=== PATIENT | female | born 1950 | race Caucasian/White ===

== ENCOUNTER 2023-05-02 02:59 | Inpatient (IN) | payer MEDICARE, SELFPAY ==
[2023-05-02] VITALS (59 sets, daily range): BP systolic 114–170; BP diastolic 58–109; PULSE 71–136; RESP 15–48; TEMP 34–36.9; O2SAT 26–100; BMI 23.0
--- NOTE | 2023-05-02 03:04 | DI.RAD.S_ITS ---
PROCEDURE: XR CHEST 1V INDICATIONS: chest pain TECHNIQUE: One view of the chest was acquired. COMPARISON: None. FINDINGS: Surgical changes and devices: Cervical spinal fusion hardware is partially imaged. Lungs and pleura: Diffuse bilateral reticulations are seen throughout both lungs. No focal airspace consolidation. No pleural effusions or pneumothorax. Mediastinum: Mediastinal contours appear normal. Heart size is normal. Bones and chest wall: No suspicious bony lesions. Overlying soft tissues appear unremarkable. IMPRESSION: Diffuse bilateral reticular opacities, which may be related to chronic interstitial lung disease versus mild edema or an atypical or viral pneumonia. There is no significant discrepancy when compared to the overnight preliminary report. Approved by: Nghia Tesfaye M.D. on 05/02/2023 at 9:04
[2023-05-02 03:22] LABS: Add Manual Diff / Slide Review NO; Basophils Absolute Auto 100 /uL (0-100); Basophils Percent Auto 0.6 % (0-2); Eosinophils Absolute Auto 100 /uL (0-450); Eosinophils Percent Auto 0.6 % (2-4); Hematocrit 42.7 % (36-46); Hemoglobin 14.3 g/dL (12.0-16.0); Lymphocytes Absolute Auto 1600 /uL (1100-4500); Lymphocytes Percent Auto 15.8 % (25-40); Mean Corpuscular HGB Conc 33.5 % (30-36); Mean Corpuscular Hemoglobin 30.9 PG (26-34); Mean Corpuscular Volume 92.1 fL (80-100); Monocytes Absolute Auto 400 /uL (0-900); Monocytes Percent Auto 3.5 % (3-14); Neutrophils Absolute Auto 8000 /uL (1500-7000); Neutrophils Percent Auto 79.5 % (50-75); Platelet Count 231 X10^3/uL (150-400); Red Blood Cell Count 4.64 X10^6/uL (4.0-5.2); Red Cell Distribution Width 12.6 % (11.6-14.8); White Blood Cell Count 10.1 X10^3/uL (4.5-11.0)
[2023-05-02 03:29] LABS: Alanine Aminotransferase 18 IU/L (<35); Albumin 4.1 g/dL (3.5-5.0); Albumin Globulin Ratio 1.4 (1.0-2.8); Alkaline Phosphatase 49 U/L (38-126); Aspartate Aminotransferase 22 IU/L (14-36); BUN Creatinine Ratio 38.5 (6-22); Bilirubin Total 0.4 mg/dL (0.2-1.3); Blood Urea Nitrogen 20 mg/dL (7-17); Calcium 8.9 mg/dL (8.4-10.2); Carbon Dioxide 27 mmol/L (22-32); Chloride 104 mmol/L (98-107); Creatine Kinase 55 U/L (30-135); Estimated Glomerular Filt Rate > 60 mL/min (>60); Glucose 191 mg/dL (80-110); HEMOLYSIS 20 (0-50); Lipase 67 U/L (23-300); Potassium 3.9 mmol/L (3.4-5.1); Sodium 139 mmol/L (137-145); Total Protein 7.1 g/dL (6.3-8.2)
[2023-05-02] MEDS: ALBUTEROL 2.5 MG/3 ML NEB (ADULT) 10 MG INH (03:36)
[2023-05-02 03:37] LABS: NT-proBNP (BNP-Adult 18+) 111 pg/mL (<125)
[2023-05-02 03:41] LABS: Troponin I < 0.012 ng/mL (0.01-0.034)
[2023-05-02 04:10] LABS: Procalcitonin 0.04 ng/mL (<0.5)
--- NOTE | 2023-05-02 04:24 | ED.SOB ---
HPI - SOB/Dyspnea General Chief Complaint: Shortness of Breath/Dyspnea Stated Complaint: SOB Time Seen by Provider: 05/02/23 03:04 Source: patient and EMS Limitations: no limitations History of Present Illness HPI Narrative: Patient is a 72-year-old female with history of COPD, hypertension presenting today with increasing shortness of breath. She is visiting from [place] she is been appear for couple of months. She is not been using her albuterol nebulizer as often as she should but she has been using her inhalers fairly regularly. She reports over the last couple of days she is had increasing shortness of breath. EMS was called to her house earlier this evening for shortness of breath she was given a DuoNeb and then was not transported. They were called again for worsening shortness of breath. She was found to be hypoxic in the 80s brought to the ED for evaluation. In route she received Solu-Medrol 125 and a DuoNeb which has helped her. Patient reports that she is on home oxygen at night mostly in only has a as needed basis. However she has noted that she is had increasing need for oxygen during the day. She denies fevers chills or productive cough. Denies any abdominal pain nausea vomiting chest pain or palpitations. Related Data Home Medications Medication Instructions Recorded Confirmed albuterol sulfate 90 mcg/actuation ##0 10/30/16 aerosol inhaler (Ventolin HFA) albuterol sulfate 90 mcg/actuation 2 puff INH ##0 10/30/16 aerosol inhaler (Ventolin HFA) amlodipine 2.5 mg tablet (Norvasc) 2.5 mg PO QDAY ##0 10/30/16 aspirin 81 mg tablet,delayed 81 mg PO QDAY ##0 10/30/16 release cyclobenzaprine 10 mg tablet 10 mg PO HS ##0 10/30/16 ipratropium bromide 0.02 % 2.5 ml INH ##0 10/30/16 solution for inhalation levothyroxine 75 mcg tablet 0.075 mg PO QDAY ##0 10/30/16 (Synthroid) losartan 50 mg tablet 50 mg PO QDAY ##0 10/30/16 nortriptyline 25 mg capsule 25 mg PO HS ##0 10/30/16 (Pamelor) omeprazole 20 mg capsule,delayed 20 mg PO QDAY ##0 10/30/16 release simvastatin 20 mg tablet (Zocor) 20 mg PO HS ##0 10/30/16 Previous Rx's Medication Instructions Recorded ciprofloxacin HCl 500 mg tablet 500 mg PO BID 7 days #0 tabs 10/30/16 (Cipro) Allergies Allergy/AdvReac Type Severity Reaction Status Date / Time No Known Allergies Allergy Uncoded 12/11/17 12:05 Review of Systems Review of Systems ROS Unobtainable: All systems reviewed & are unremarkable except as noted in HPI and below Patient History Social History Smoking Status: Current every day smoker Smoking Status: Current every day smoker Substance Use Type: does not use Exam Initial Vital Signs Initial Vital Signs: Vital Signs Pulse Rate 80 05/02/23 03:03 Respiratory Rate 24 05/02/23 03:03 Pulse Oximetry 93 05/02/23 03:03 GENERAL: Alert 72-year-old female [id number] respiratory distress HEENT: Head atraumatic,EOMI, pupils reactive CARDIOVASCULAR: Regular rate and rhythm without murmurs, rubs or gallops. RESPIRATORY: Tachypneic decreased breath sounds bilaterally obvious conversational dyspnea ABDOMEN: Soft, nontender. Normoactive bowel sounds all 4 quadrants. No guarding or rebound. EXTREMITIES: Normal range of motion, no clubbing or edema. Neurovascularly intact NEUROLOGICAL: Alert and oriented x4.Normal gait and speech. SKIN: Warm, dry, no laceration, no petechiae, no rashes or lesions. Course Orders Ordered: ED Orders 05/02/23 03:02 Complete Blood Count AUTO DIFF Stat Comprehensive Metabolic Panel Stat Lipase Stat NT-proBNP (BNP-Adult 18+) Stat Troponin & CK Cardiac Panel Stat 05/02/23 03:04 XR chest 1V Stat EKG-12 Lead Stat 05/02/23 03:05 Respiratory Panel (Film Array) Stat 05/02/23 03:07 Procalcitonin Stat 05/02/23 05:01 ABG [Arterial Blood Gas] Stat 05/02/23 05:17 Arterial Blood Gas Stat 05/02/23 05:18 Venous Blood Gas Stat Remdesivir 200 mg/ Sodium (Chloride) 250 mls @ 250 mls/hr IV NOW ONE Stop: 05/02/23 07:18 Last Admin: 05/02/23 06:45 Dose: 250 mls/hr Discontinued Medications Albuterol (Albuterol 2.5 Mg/3 Ml Neb (Adult)) 10 mg INH NOW ONE Stop: 05/02/23 03:09 Last Admin: 05/02/23 03:36 Dose: 10 mg Documented By: MALINA Sodium Chloride (Normal Saline 0.9%) 1,000 mls @ 1,000 mls/hr IV BOLUS ONE Stop: 05/02/23 05:23 Last Infusion: 05/02/23 05:45 Dose: 0 mls/hr Documented By: Admin: 05/02/23 04:46 Dose: 1,000 mls/hr Documented By: FREEMAN Ceftriaxone Sodium 2,000 mg/ (Sodium Chloride) 100 mls @ 200 mls/hr IV NOW ONE Stop: 05/02/23 04:25 Last Infusion: 05/02/23 05:17 Dose: 0 mls/hr Documented By: Admin: 05/02/23 04:47 Dose: 200 mls/hr Documented By: FREEMAN Azithromycin 500 mg/ Dextrose 250 mls @ 250 mls/hr IV NOW ONE Stop: 05/02/23 04:25 Last Admin: 05/02/23 05:22 Dose: 250 mls/hr Documented By: FREEMAN Vital Signs Vital signs: Vital Signs - 8 hr 05/02/23 03:05 05/02/23 03:14 05/02/23 05:56 Temperature 97 F L Pulse Rate 80 72 84 Respiratory Rate 20 24 22 Blood Pressure 125/59 L Pulse Oximetry 93 96 94 Oxygen Delivery Method Nasal Cannula Nasal Cannula BiPAP Oxygen Flow Rate 1.5 1 Fraction of Inspired Oxygen 05/02/23 05:58 05/02/23 03:03 05/02/23 03:04 Temperature Pulse Rate 80 82 Respiratory Rate 24 16 Blood Pressure Pulse Oximetry 93 92 Oxygen Delivery Method Oxygen Flow Rate Fraction of Inspired Oxygen 05/02/23 03:04 05/02/23 03:30 05/02/23 03:30 Temperature 98 F Pulse Rate 71 Respiratory Rate 29 H Blood Pressure 125/59 L 138/59 L Pulse Oximetry 96 Oxygen Delivery Method Oxygen Flow Rate Fraction of Inspired Oxygen 05/02/23 04:00 05/02/23 04:00 05/02/23 04:30 Temperature Pulse Rate 75 Respiratory Rate 25 H Blood Pressure 138/60 139/73 Pulse Oximetry 94 Oxygen Delivery Method Oxygen Flow Rate Fraction of Inspired Oxygen 05/02/23 04:30 05/02/23 05:00 05/02/23 05:00 Temperature Pulse Rate 91 H 89 Respiratory Rate 24 21 Blood Pressure 123/59 L Pulse Oximetry 92 94 Oxygen Delivery Method Oxygen Flow Rate Fraction of Inspired Oxygen 05/02/23 05:30 05/02/23 05:30 05/02/23 06:00 Temperature Pulse Rate 88 Respiratory Rate 20 Blood Pressure 126/63 114/58 L Pulse Oximetry 100 Oxygen Delivery Method Oxygen Flow Rate Fraction of Inspired Oxygen 05/02/23 06:00 05/02/23 06:30 05/02/23 06:30 Temperature 98.5 F Pulse Rate 93 H 94 H Respiratory Rate 26 H 28 H Blood Pressure 126/65 Pulse Oximetry 93 90 L Oxygen Delivery Method Oxygen Flow Rate Fraction of Inspired Oxygen MDM - SOB/Dyspnea Lab Data 05/02/23 03:02 05/02/23 03:02 Labs: Lab Results 05/02/23 05/02/23 05/02/23 Range/Units 03:02 03:02 03:02 WBC 10.1 (4.5-11.0) X10^3/uL RBC 4.64 (4.0-5.2) X10^6/uL Hgb 14.3 (12.0-16.0) g/dL Hct 42.7 (36-46) % MCV 92.1 (80-100) fL MCH 30.9 (26-34) PG MCHC 33.5 (30-36) % RDW 12.6 (11.6-14.8) % Plt Count 231 (150-400) X10^3/uL Neut % (Auto) 79.5 H (50-75) % Lymph % (Auto) 15.8 L (25-40) % [place] % (Auto) 3.5 (3-14) % Eos % (Auto) 0.6 L (2-4) % Baso % (Auto) 0.6 (0-2) % Neut # (Auto) 8000 H (5200-9053) /uL Lymph # (Auto) 1600 (4377-2025) /uL [place] # (Auto) 400 (0-900) /uL Eos # (Auto) 100 (0-450) /uL Baso # (Auto) 100 (0-100) /uL ABG pH (7.35-7.45) ABG pCO2 (35-45) mmHg ABG pO2 (80-100) mmHg ABG HCO3 (23-27) mmol/L ABG Total CO2 (23-27) mmol/L ABG O2 Saturation (95-100) % ABG Base Excess (-2-3) mmol/L FiO2 Sodium 139 (137-145) mmol/L Potassium 3.9 (3.4-5.1) mmol/L Chloride 104 (98-107) mmol/L Carbon Dioxide 27 (22-32) mmol/L BUN 20 H (7-17) mg/dL Creatinine 0.52 (0.52-1.04) mg/dL Estimated GFR > 60 (>60) mL/min BUN/Creatinine Ratio 38.5 H (6-22) Glucose 191 H (80-110) mg/dL Calcium 8.9 (8.4-10.2) mg/dL Total Bilirubin 0.4 (0.2-1.3) mg/dL AST 22 (14-36) IU/L ALT 18 (<35) IU/L Alkaline Phosphatase 49 (38-126) U/L Total Creatine Kinase 55 (30-135) U/L Troponin I < 0.012 (0.01-0.034) ng/mL NT-Pro-B Natriuret Pep 111 (<125) pg/mL Total Protein 7.1 (6.3-8.2) g/dL Albumin 4.1 (3.5-5.0) g/dL Globulin 3.0 (1.7-4.1) g/dL Albumin/Globulin Ratio 1.4 (1.0-2.8) Lipase 67 (23-300) U/L Procalcitonin (<0.5) ng/mL Chlamy pneumoniae PCR (Not Detect) Adenovirus (PCR) (Not Detect) B. pertussis DNA (PCR) (Not Detecte) B.parapertussis DNA PCR (Not Detecte) Coronavirus OC43 (PCR) (Not Detect) Coronavirus HKU1 (PCR) (Not Detect) Coronavirus 229E (PCR) (Not Detect) SARS-CoV-2 (PCR) (Not Detecte) Coronavirus NL63 (PCR) (Not Detect) Human Metapneumovir PCR (Not Detect) Influenza Type A (PCR) (Not Detect) Influenza Type B (PCR) (Not Detect) M. pneumoniae (PCR) (Not Detect) Parainfluenza 1 (PCR) (Not Detect) Parainfluenza 2 (PCR) (Not Detect) Parainfluenza 3 (PCR) (Not Detect) Parainfluenza 4 (PCR) (Not Detect) RSV (PCR) (Not Detect) Entero/Rhino (PCR) (Not Detect) 05/02/23 05/02/23 05/02/23 Range/Units 03:05 03:07 05:17 WBC (4.5-11.0) X10^3/uL RBC (4.0-5.2) X10^6/uL Hgb (12.0-16.0) g/dL Hct (36-46) % MCV (80-100) fL MCH (26-34) PG MCHC (30-36) % RDW (11.6-14.8) % Plt Count (150-400) X10^3/uL Neut % (Auto) (50-75) % Lymph % (Auto) (25-40) % [place] % (Auto) (3-14) % Eos % (Auto) (2-4) % Baso % (Auto) (0-2) % Neut # (Auto) (8595-6690) /uL Lymph # (Auto) (7543-3426) /uL [place] # (Auto) (0-900) /uL Eos # (Auto) (0-450) /uL Baso # (Auto) (0-100) /uL ABG pH 7.25 L* (7.35-7.45) ABG pCO2 66.7 H* (35-45) mmHg ABG pO2 46 L* (80-100) mmHg ABG HCO3 29 H (23-27) mmol/L ABG Total CO2 31 H (23-27) mmol/L ABG O2 Saturation 73 L* (95-100) % ABG Base Excess 2.0 (-2-3) mmol/L FiO2 32 Sodium (137-145) mmol/L Potassium (3.4-5.1) mmol/L Chloride (98-107) mmol/L Carbon Dioxide (22-32) mmol/L BUN (7-17) mg/dL Creatinine (0.52-1.04) mg/dL Estimated GFR (>60) mL/min BUN/Creatinine Ratio (6-22) Glucose (80-110) mg/dL Calcium (8.4-10.2) mg/dL Total Bilirubin (0.2-1.3) mg/dL AST (14-36) IU/L ALT (<35) IU/L Alkaline Phosphatase (38-126) U/L Total Creatine Kinase (30-135) U/L Troponin I (0.01-0.034) ng/mL NT-Pro-B Natriuret Pep (<125) pg/mL Total Protein (6.3-8.2) g/dL Albumin (3.5-5.0) g/dL Globulin (1.7-4.1) g/dL Albumin/Globulin Ratio (1.0-2.8) Lipase (23-300) U/L Procalcitonin 0.04 (<0.5) ng/mL Chlamy pneumoniae PCR Not detected (Not Detect) Adenovirus (PCR) Not detected (Not Detect) B. pertussis DNA (PCR) Not detected (Not Detecte) B.parapertussis DNA PCR Not detected (Not Detecte) Coronavirus OC43 (PCR) Not detected (Not Detect) Coronavirus HKU1 (PCR) Not detected (Not Detect) Coronavirus 229E (PCR) Not detected (Not Detect) SARS-CoV-2 (PCR) Detected H (Not Detecte) Coronavirus NL63 (PCR) Not detected (Not Detect) Human Metapneumovir PCR Not detected (Not Detect) Influenza Type A (PCR) Not detected (Not Detect) Influenza Type B (PCR) Not detected (Not Detect) M. pneumoniae (PCR) Not detected (Not Detect) Parainfluenza 1 (PCR) Not detected (Not Detect) Parainfluenza 2 (PCR) Not detected (Not Detect) Parainfluenza 3 (PCR) Not detected (Not Detect) Parainfluenza 4 (PCR) Not detected (Not Detect) RSV (PCR) Not detected (Not Detect) Entero/Rhino (PCR) Not detected (Not Detect) Imaging Data Chest x-ray: Radiologist's Impression: Preliminary report: Coarse interstitial opacities bilaterally which could be associated with infiltrate or edema ECG Data Interpretation: Sinus rhythm rate 95 MT interval 154 QRS [address] changes no T-wave inversions MDM Narrative Medical decision making narrative: Patient 72-year-old female history of COPD on oxygen as needed presenting with increasing shortness of breath over the last couple of days. She initially was given 10 mg of albuterol which did open her up quite a bit and helped her respiratory distress. She reports feeling more sleepy than normal and just overall exhausted fell asleep. While sleeping she had a stridorous like sound which stops when she does not sleep. When patient is awake she is not stridorous is likely sleeping noise but she still is having some mild retractions and respiratory distress. Patient does not allow for an ABG so a VBG was done showing CO2 66 and a pH is 7.2. She is placed on BiPAP. She overall appears more comfortable help with her respiratory distress Chest x-ray has been reviewed shows interstitial opacities which could be infiltrate edema or fibrosis. Labs have been reviewed there is no significant leukocytosis or electrolyte abnormalities procalcitonin negative negative lactate. Negative BNP At this time patient has a history of COPD symptoms are most consistent with a COPD exacerbation. She was given Solu-Medrol prior to arrival she is given IV fluids Rocephin and Zithromax. She is on 1-2 L of oxygen currently.. Patient tolerating BiPAP but discussed with her she actually does not want to stay in the hospital agrees to keep the BiPAP on for longer. Dr. Mendez accepts patient Discharge Plan Departure Patient Disposition: Admitted As Inpatient Clinical Impression: COVID-19, COPD (chronic obstructive pulmonary disease), Hypoxia Prescriptions: No Action aspirin 81 MG tablet,delayed release (DR/EC) 81 mg PO QDAY Qty: 0 levothyroxine [Synthroid] 75 MCG tablet 0.075 mg PO QDAY Qty: 0 nortriptyline [Pamelor] 25 MG capsule 25 mg PO HS Qty: 0 albuterol sulfate [Ventolin HFA] 90 MCG/PUFF HFA aerosol inhaler Qty: 0 losartan 50 MG tablet 50 mg PO QDAY Qty: 0 simvastatin [Zocor] 20 MG tablet 20 mg PO HS Qty: 0 albuterol sulfate [Ventolin HFA] 90 MCG/PUFF HFA aerosol inhaler 2 puff INH Qty: 0 ipratropium bromide 0.2 MG/1 ML solution 2.5 ml INH Qty: 0 cyclobenzaprine 10 MG tablet 10 mg PO HS Qty: 0 amlodipine [Norvasc] 2.5 MG tablet 2.5 mg PO QDAY Qty: 0 omeprazole 20 MG capsule,delayed release(DR/EC) 20 mg PO QDAY Qty: 0 ciprofloxacin HCl [Cipro] 500 MG tablet 500 mg PO BID 7 Days Qty: 0 0RF Referrals: Alpa Black PA-C [Primary Care Provider] -
[2023-05-02] MEDS: SODIUM CHLORIDE 0.9% 1,000 ML 1000 ML IV (04:46)
[2023-05-02] MEDS: cefTRIAXone 2,000 MG in SODIUM CHLORIDE 0.9% 100 ML 200 MG IV (04:47)
[2023-05-02] MEDS: AZITHROMYCIN 500 MG in DEXTROSE 5% IN WATER 250 ML 250 MG IV (05:22)
[2023-05-02 05:48] LABS: Fractionated Inspired Oxygen 32; HCO3 ABG 29 mmol/L (23-27); Oxygen Saturation ABG 73 % (95-100); PCO2 ABG 66.7 mmHg (35-45); PO2 ABG 46 mmHg (80-100); TCO2 ABG 31 mmol/L (23-27); pH ABG 7.25 (7.35-7.45)
[2023-05-02 06:19] LABS: Adenovirus Not Detected (Not Detect); Coronavirus 229E Not Detected (Not Detect); Coronavirus HKU1 Not Detected (Not Detect); Coronavirus NL 63 Not Detected (Not Detect); Coronavirus OC43 Not Detected (Not Detect); Human Metapneumovirus Not Detected (Not Detect); Human Rhinovirus/Enterovirus Not Detected (Not Detect); Influenza A Not Detected (Not Detect); Influenza B Not Detected (Not Detect); SARS- CoV-2 Detected (Not Detecte)
[2023-05-02 06:20] LABS: B. parapertussis Not Detected (Not Detecte); Bordetella pertussis Not Detected (Not Detecte); Chlamydophila pneumoniae Not Detected (Not Detect); Mycoplasma pneumoniae Not Detected (Not Detect); Parainfluenza Virus 1 Not Detected (Not Detect); Parainfluenza Virus 2 Not Detected (Not Detect); Parainfluenza Virus 3 Not Detected (Not Detect); Parainfluenza Virus 4 Not Detected (Not Detect); Respiratory Syncytial Virus Not Detected (Not Detect)
[2023-05-02] MEDS: REMDESIVIR 200 MG in SODIUM CHLORIDE 0.9% 250 ML 250 MG IV (06:45)
[2023-05-02] MEDS: ENOXAPARIN 40 MG/0.4 ML SYRINGE SUBCUT (09:44)
[2023-05-02] MEDS: DEXAMETHASONE 10 MG/ML VIAL 6 MG IV (09:44)
--- NOTE | 2023-05-02 15:01 | P.HP_ITS ---
History of Present Illness History of Present Illness Date Patient Seen: 05/02/23 Time Patient Seen: 08:00 Chief complaint: SOB Narrative: Ms. Velasquez is a 72W with PMH COPD, HTN who presents to the hospital with shortness of breath. She notes she has had worsening shortness of breath for the last few days. She is coughing but minimal sputum. She is traveling from out of [facility]. She has no known sick contacts. EMS found her to be hypoxic to the 80s, she uses oxygen on an as needed basis. She has no fevers/chills. In the ED workup was done, vitals notable for afebrile, heart rate 90s-100s, blood pressure 130s-140s/70s-90s, respiratory rate 20s, sats 96% on 3L. She was placed on BIPAP due to her work of breathing. Labs reviewed by me and notable for WBC 10.1, hgb 14.3, plts 231. Na 139, BUN 20, creatinine 0.52. Trop negative. Procal 0.04. Respiratory panel with COVID. Chest xray reviewed by me and shows bilateral interstitial infiltrates. She was admitted for further treatment. [facility] Social History household members: family Smoking Status: Current every day smoker alcohol intake: never Meds Home Medications and Allergies Home Medications Medication Instructions Recorded Confirmed Type albuterol sulfate 90 mcg/actuation 2 puff INH Q6HR ##0 10/30/16 05/02/23 History aerosol inhaler (Ventolin HFA) amlodipine 2.5 mg tablet (Norvasc) 2.5 mg PO QDAY ##0 10/30/16 05/02/23 History ciprofloxacin HCl 500 mg tablet 500 mg PO BID 7 days #0 tabs 10/30/16 05/02/23 Rx (Cipro) cyclobenzaprine 10 mg tablet 10 mg PO HS ##0 10/30/16 05/02/23 History ipratropium bromide 0.02 % 2.5 ml INH ##0 10/30/16 History solution for inhalation levothyroxine 75 mcg tablet 0.075 mg PO QDAY ##0 10/30/16 05/02/23 History (Synthroid) losartan 50 mg tablet 50 mg PO QDAY ##0 10/30/16 05/02/23 History nortriptyline 25 mg capsule 25 mg PO HS ##0 10/30/16 05/02/23 History (Pamelor) omeprazole 20 mg capsule,delayed 20 mg PO QDAY ##0 10/30/16 05/02/23 History release simvastatin 20 mg tablet (Zocor) 20 mg PO HS ##0 10/30/16 05/02/23 History guaifenesin 1,200 mg tablet, 1,200 mg PO DAILY 05/02/23 05/02/23 History extended release 12 hr Allergies Allergy/AdvReac Type Severity Reaction Status Date / Time No Known Allergies Allergy Uncoded 12/11/17 12:05 Review of Systems Review of Systems Narrative: 14 systems reviewed and negative aside from what is noted in HPI Exam Vital Signs (past 8 hours): - 05/02/23 07:50 05/02/23 09:47 05/02/23 07:50 Temperature Pulse Rate 101 H Respiratory Rate 20 Blood Pressure 170/98 H Pulse Oximetry 96 Oxygen Delivery Method Nasal Cannula Nasal Cannula Oxygen Flow Rate 3 Fraction of Inspired Oxygen 26 05/02/23 07:30 05/02/23 07:31 05/02/23 07:31 Temperature Pulse Rate 101 H 101 H Respiratory Rate 46 H 38 H Blood Pressure 170/96 H Pulse Oximetry 85 L 87 L Oxygen Delivery Method Oxygen Flow Rate Fraction of Inspired Oxygen 05/02/23 08:00 05/02/23 08:01 05/02/23 08:01 Temperature Pulse Rate 101 H 103 H Respiratory Rate 48 H 27 H Blood Pressure 145/109 H Pulse Oximetry 91 91 Oxygen Delivery Method Oxygen Flow Rate Fraction of Inspired Oxygen 05/02/23 08:30 05/02/23 08:30 05/02/23 09:00 Temperature Pulse Rate 101 H Respiratory Rate 25 H Blood Pressure 145/65 H 136/63 Pulse Oximetry 91 Oxygen Delivery Method Oxygen Flow Rate Fraction of Inspired Oxygen 05/02/23 09:00 05/02/23 09:30 05/02/23 09:31 Temperature Pulse Rate 98 H 101 H Respiratory Rate 23 26 H Blood Pressure 135/94 H Pulse Oximetry 91 94 Oxygen Delivery Method Oxygen Flow Rate Fraction of Inspired Oxygen 05/02/23 09:31 05/02/23 10:01 05/02/23 10:30 Temperature 97.8 F Pulse Rate 103 H 136 H 95 H Respiratory Rate 26 H 22 Blood Pressure Pulse Oximetry 94 92 98 Oxygen Delivery Method Oxygen Flow Rate Fraction of Inspired Oxygen 05/02/23 11:00 05/02/23 11:30 05/02/23 11:42 Temperature Pulse Rate 99 H 102 H Respiratory Rate Blood Pressure 144/69 H Pulse Oximetry 95 96 Oxygen Delivery Method Oxygen Flow Rate Fraction of Inspired Oxygen 05/02/23 11:42 05/02/23 13:09 05/02/23 12:00 Temperature Pulse Rate 103 H Respiratory Rate Blood Pressure 147/70 H Pulse Oximetry 95 Oxygen Delivery Method Nasal Cannula Oxygen Flow Rate Fraction of Inspired Oxygen 05/02/23 12:00 05/02/23 12:30 05/02/23 13:00 Temperature Pulse Rate 97 H 98 H 93 H Respiratory Rate Blood Pressure Pulse Oximetry 96 97 97 Oxygen Delivery Method Oxygen Flow Rate Fraction of Inspired Oxygen 05/02/23 14:00 Temperature 97.8 F Pulse Rate 102 H Respiratory Rate 23 Blood Pressure 133/66 Pulse Oximetry 96 Oxygen Delivery Method Oxygen Flow Rate 2 Fraction of Inspired Oxygen Fraction of Inspired Oxygen 26 SaO2/FiO2 Ratio 361 Oxygen Delivery Method Nasal Cannula Oxygen Flow Rate 2 Narrative Exam Narrative: GEN: in respiratory distress CV: tachycardic PULM: increased work of breathing, corase breath sounds bilaterally ABD: soft, nontender, nondistended EXT: warm and well perfused with no edema Objective Labs 05/02/23 03:02 05/02/23 03:02 Labs: Laboratory Results - last 24 hr 05/02/23 05/02/23 05/02/23 03:02 03:02 03:02 WBC 10.1 RBC 4.64 Hgb 14.3 Hct 42.7 MCV 92.1 MCH 30.9 MCHC 33.5 RDW 12.6 Plt Count 231 Neut % (Auto) 79.5 H Lymph % (Auto) 15.8 L [place] % (Auto) 3.5 Eos % (Auto) 0.6 L Baso % (Auto) 0.6 Neut # (Auto) 8000 H Lymph # (Auto) 1600 [place] # (Auto) 400 Eos # (Auto) 100 Baso # (Auto) 100 ABG pH ABG pCO2 ABG pO2 ABG HCO3 ABG Total CO2 ABG O2 Saturation ABG Base Excess FiO2 Sodium 139 Potassium 3.9 Chloride 104 Carbon Dioxide 27 BUN 20 H Creatinine 0.52 Estimated GFR > 60 BUN/Creatinine Ratio 38.5 H Glucose 191 H Calcium 8.9 Total Bilirubin 0.4 AST 22 ALT 18 Alkaline Phosphatase 49 Total Creatine Kinase 55 Troponin I < 0.012 NT-Pro-B Natriuret Pep 111 Total Protein 7.1 Albumin 4.1 Globulin 3.0 Albumin/Globulin Ratio 1.4 Lipase 67 Procalcitonin Chlamy pneumoniae PCR Adenovirus (PCR) B. pertussis DNA (PCR) B.parapertussis DNA PCR Coronavirus OC43 (PCR) Coronavirus HKU1 (PCR) Coronavirus 229E (PCR) SARS-CoV-2 (PCR) Coronavirus NL63 (PCR) Human Metapneumovir PCR Influenza Type A (PCR) Influenza Type B (PCR) M. pneumoniae (PCR) Parainfluenza 1 (PCR) Parainfluenza 2 (PCR) Parainfluenza 3 (PCR) Parainfluenza 4 (PCR) RSV (PCR) Entero/Rhino (PCR) 05/02/23 05/02/23 05/02/23 03:05 03:07 05:17 WBC RBC Hgb Hct MCV MCH MCHC RDW Plt Count Neut % (Auto) Lymph % (Auto) [place] % (Auto) Eos % (Auto) Baso % (Auto) Neut # (Auto) Lymph # (Auto) [place] # (Auto) Eos # (Auto) Baso # (Auto) ABG pH 7.25 L* ABG pCO2 66.7 H* ABG pO2 46 L* ABG HCO3 29 H ABG Total CO2 31 H ABG O2 Saturation 73 L* ABG Base Excess 2.0 FiO2 32 Sodium Potassium Chloride Carbon Dioxide BUN Creatinine Estimated GFR BUN/Creatinine Ratio Glucose Calcium Total Bilirubin AST ALT Alkaline Phosphatase Total Creatine Kinase Troponin I NT-Pro-B Natriuret Pep Total Protein Albumin Globulin Albumin/Globulin Ratio Lipase Procalcitonin 0.04 Chlamy pneumoniae PCR Not detected Adenovirus (PCR) Not detected B. pertussis DNA (PCR) Not detected B.parapertussis DNA PCR Not detected Coronavirus OC43 (PCR) Not detected Coronavirus HKU1 (PCR) Not detected Coronavirus 229E (PCR) Not detected SARS-CoV-2 (PCR) Detected H Coronavirus NL63 (PCR) Not detected Human Metapneumovir PCR Not detected Influenza Type A (PCR) Not detected Influenza Type B (PCR) Not detected M. pneumoniae (PCR) Not detected Parainfluenza 1 (PCR) Not detected Parainfluenza 2 (PCR) Not detected Parainfluenza 3 (PCR) Not detected Parainfluenza 4 (PCR) Not detected RSV (PCR) Not detected Entero/Rhino (PCR) Not detected Assessment & Plan Assessment & Plan narrative: 1. Acute hypoxemic respiratory failure secondary to COVID with acute COPD exacerbation -noted to be hypoxemic on initial evaluation, now requiring oxygen -will treat with steroids and remdesivir for COVID -in addition will treat with azithromycin and nebulizers for copd exacerbation -wean oxygen as able, goal o2>88% 2. Hypertension -continue home meds with losartan, amlodipine 3. Hyperlipidemia -continue statin 4. Hypothyroid -continue synthroid 5. GERD -continue PPI I have discussed plan and obtained history from the patient. I have discussed plan of care with ED physician and bedside nurse. I have reviewed labs, imaging. CODE: Full Proxy: Cam Layton, family Quality VTE Deep Vein Thrombosis/Pulmonary Embolism Present on Admission: No MIPS - Meds 'Current medications' to include all prescriptions, [id number] products, herbals, cannabis/cannabidiol products, and vitamin/mineral/dietary (nutritional) supplements. I have utilized all available resources to obtain, update, or review the patient?s current medications. [If Yes, STOP here]: Yes
[2023-05-02] MEDS: ALBUTEROL/IPRATROPIUM 3 ML AMPUL INH ×2 (15:17→19:43)
[2023-05-02 15:36] LABS: MRSA (Nasal) PCR Not Detected (Not Detect)
[2023-05-02] MEDS: guaiFENesin ER 600 MG TAB PO (15:38)
[2023-05-02] MEDS: ATORVASTATIN 20 MG TABLET 10 MG PO (20:08)
[2023-05-03] VITALS (18 sets, daily range): BP systolic 135–140; BP diastolic 65–87; PULSE 69–96; RESP 18–24; TEMP 35.8–36.4; O2SAT 90–100
[2023-05-03 04:59] LABS: Add Manual Diff / Slide Review NO; Basophils Absolute Auto 0 /uL (0-100); Basophils Percent Auto 0.1 % (0-2); Eosinophils Absolute Auto 0 /uL (0-450); Eosinophils Percent Auto 0.1 % (2-4); Hematocrit 38.2 % (36-46); Hemoglobin 12.9 g/dL (12.0-16.0); Lymphocytes Absolute Auto 1300 /uL (1100-4500); Mean Corpuscular HGB Conc 33.7 % (30-36); Mean Corpuscular Hemoglobin 30.9 PG (26-34); Mean Corpuscular Volume 91.8 fL (80-100); Monocytes Absolute Auto 700 /uL (0-900); Monocytes Percent Auto 5.8 % (3-14); Neutrophils Absolute Auto 9800 /uL (1500-7000); Platelet Count 199 X10^3/uL (150-400); Red Blood Cell Count 4.16 X10^6/uL (4.0-5.2); Red Cell Distribution Width 12.6 % (11.6-14.8); White Blood Cell Count 11.7 X10^3/uL (4.5-11.0)
[2023-05-03 05:11] LABS: BUN Creatinine Ratio 35.7 (6-22); Blood Urea Nitrogen 15 mg/dL (7-17); Calcium 8.7 mg/dL (8.4-10.2); Carbon Dioxide 32 mmol/L (22-32); Chloride 104 mmol/L (98-107); Estimated Glomerular Filt Rate > 60 mL/min (>60); Glucose 115 mg/dL (80-110); HEMOLYSIS < 15 (0-50); Sodium 138 mmol/L (137-145)
[2023-05-03] MEDS: PANTOPRAZOLE DR 20 MG TABLET PO (05:42)
[2023-05-03] MEDS: AZITHROMYCIN 500 MG in DEXTROSE 5% IN WATER 250 ML 125 MG IV (05:42)
[2023-05-03] MEDS: LEVOTHYROXINE 75 MCG TABLET PO (05:42)
[2023-05-03] MEDS: DEXAMETHASONE 10 MG/ML VIAL 6 MG IV (08:30)
[2023-05-03] MEDS: AMLODIPINE 5 MG TABLET 2.5 MG PO (08:31)
[2023-05-03] MEDS: LOSARTAN 50 MG TABLET PO (08:31)
[2023-05-03] MEDS: ENOXAPARIN 40 MG/0.4 ML SYRINGE SUBCUT (08:31)
[2023-05-03] MEDS: REMDESIVIR 100 MG in SODIUM CHLORIDE 0.9% 250 ML 250 MG IV (09:50)
[2023-05-03] MEDS: guaiFENesin ER 600 MG TAB PO (11:57)
--- NOTE | 2023-05-03 12:38 | PM.DS.1 ---
History of Present Illness History of Present Illness Date Patient Seen: 05/03/23 Time Patient Seen: 12:39 Chief complaint: SOB Narrative: Ms. Velasquez is a 72W with PMH COPD, HTN who presents to the hospital with shortness of breath. She notes she has had worsening shortness of breath for the last few days. She is coughing but minimal sputum. She is traveling from out of [facility]. She has no known sick contacts. EMS found her to be hypoxic to the 80s, she uses oxygen on an as needed basis. She has no fevers/chills. In the ED workup was done, vitals notable for afebrile, heart rate 90s-100s, blood pressure 130s-140s/70s-90s, respiratory rate 20s, sats 96% on 3L. She was placed on BIPAP due to her work of breathing. Labs reviewed by me and notable for WBC 10.1, hgb 14.3, plts 231. Na 139, BUN 20, creatinine 0.52. Trop negative. Procal 0.04. Respiratory panel with COVID. Chest xray reviewed by me and shows bilateral interstitial infiltrates. She was admitted for further treatment. Discharge Providers Provider Date of admission: 05/02/23 07:12 Discharge Date: 05/03/23 Primary care physician: Alpa Black PA-C Discharge provider: Simon Israel DO Summary Hospital Course Discharge Diagnosis: 1. Acute on chronic hypoxemic respiratory failure secondary to COVID with acute COPD exacerbation 2. Hypertension 3. Hyperlipidemia 4. Hypothyroid 5. GERD Hospital Course: This is a 72 year old female with PMH of HTN, HLD, hypothyroid, GERD, COPD on intermittent home O2 who presented with worsening shortness of breath. She was found to be hypoxic and needing a few L via nasal cannula to maintain O2 above 89%. Respiratory panel noted a positive COVID test. She was treated with remdesevir and steroids along with azithromycin with improvement. The following day she felt improved, but was still requiring intermittent oxygen to maintain o2 saturations. We discussed the risks and benefits of continued COVID treatment or treatment at home. Patient elected for discharge home. She improved much more quickly than expected. Respiratory therapy helped to obtain continued oxygen therapy at home, patient was instructed to wean as tolerated with goal O2 89-96% while on supplemental therapy. She was also given another 4 days of prednisone and azithromycin to complete treatment for COPD exacerbation. Time Spent with Patient Time spent: Greater than 30 minutes Exam Vital Signs (past 8 hours): - 05/03/23 05:00 05/03/23 05:30 05/03/23 06:00 Temperature Pulse Rate 75 72 80 Respiratory Rate Blood Pressure Pulse Oximetry 95 93 90 L Oxygen Delivery Method Oxygen Flow Rate 05/03/23 07:00 05/03/23 06:30 05/03/23 07:00 Temperature Pulse Rate 78 78 Respiratory Rate Blood Pressure Pulse Oximetry 99 99 Oxygen Delivery Method Nasal Cannula Oxygen Flow Rate 05/03/23 07:30 05/03/23 07:30 Temperature 97.5 F L Pulse Rate 76 79 Respiratory Rate 23 Blood Pressure 140/87 Pulse Oximetry 98 95 Oxygen Delivery Method Oxygen Flow Rate 2 Fraction of Inspired Oxygen 28 SaO2/FiO2 Ratio 339 Oxygen Delivery Method Nasal Cannula Oxygen Flow Rate 2 Narrative Exam Narrative: GEN: no acute distress, well appearing CV: RRR PULM: CTA b/l ABD: soft, nontender, nondistended EXT: warm and well perfused with no edema Objective Labs 05/03/23 04:20 05/03/23 04:20 Labs: Laboratory Results - last 24 hr 05/02/23 05/03/23 05/03/23 14:05 04:20 04:20 WBC 11.7 H RBC 4.16 Hgb 12.9 Hct 38.2 MCV 91.8 MCH 30.9 MCHC 33.7 RDW 12.6 Plt Count 199 Neut % (Auto) 83.0 H Lymph % (Auto) 11.0 L [place] % (Auto) 5.8 Eos % (Auto) 0.1 L Baso % (Auto) 0.1 Neut # (Auto) 9800 H Lymph # (Auto) 1300 [place] # (Auto) 700 Eos # (Auto) 0 Baso # (Auto) 0 Sodium 138 Potassium 4.0 Chloride 104 Carbon Dioxide 32 BUN 15 Creatinine 0.42 L Estimated GFR > 60 BUN/Creatinine Ratio 35.7 H Glucose 115 H Calcium 8.7 Nasal Screen MRSA (PCR) Not detected [facility] Social History household members: family Smoking Status: Current every day smoker alcohol intake: never Discharge Plan Discharge Plan Patient Disposition: Home Provider Discharge Comment: You were admitted to the hospital with COPD exacerbation likely due to COVID. You elected for discharge home today, continue treatment with steroids and medications noted below at home. Home O2 evaluation with increase equipment in process with respiratory therapy. Discharge orders & Medications Prescriptions: New azithromycin 250 mg tablet 250 mg PO DAILY 4 Days Qty: 4 0RF prednisone 20 mg tablet 40 mg PO DAILY 4 Days Qty: 8 0RF Continued levothyroxine [Synthroid] 75 MCG tablet 0.075 mg PO QDAY Qty: 0 nortriptyline [Pamelor] 25 MG capsule 25 mg PO HS Qty: 0 losartan 50 MG tablet 50 mg PO QDAY Qty: 0 simvastatin [Zocor] 20 MG tablet 20 mg PO HS Qty: 0 albuterol sulfate [Ventolin HFA] 90 MCG/PUFF HFA aerosol inhaler 2 puff INH Q6HR Qty: 0 ipratropium bromide 0.2 MG/1 ML solution 2.5 ml INH Qty: 0 Patient Comments: Patient unsure of exact dosage and frequency cyclobenzaprine 10 MG tablet 10 mg PO HS Qty: 0 amlodipine [Norvasc] 2.5 MG tablet 2.5 mg PO QDAY Qty: 0 omeprazole 20 MG capsule,delayed release(DR/EC) 20 mg PO QDAY Qty: 0 guaifenesin 1,200 mg Tablet Extended Release 12hr 1,200 mg PO DAILY Discontinued ciprofloxacin HCl [Cipro] 500 MG tablet 500 mg PO BID 7 Days Qty: 0 0RF Follow up/Referrals: Alpa Black PA-C [Primary Care Provider] - Visit Report/Discharge Packet Stand Alone Forms: Patient Portal/API, Stroke Signs & Symptoms Discharge Data Primary Care Provider: Alpa Black Discharges patient from system. Discharge Date/Time: 05/03/23 16:39 Quality VTE Deep Vein Thrombosis/Pulmonary Embolism Present on Admission: No
[2023-05-03] MEDS: ALBUTEROL/IPRATROPIUM 3 ML AMPUL INH (13:47)
--- NOTE | 2023-05-03 15:50 | CM.DANOTE ---
Patient is a 72 yo female who was admitted on 05/02/23 for SOB. Pt has [facility] for insurance and her PCP is Jessica Black. EMR was reviewed. Per MD, pt with hx of COPD and admitted for COVID+ COPD exac with hypoxia. Per MD, pt now medically stable to d/c home after RT eval for home oxygen. Per RT, pt qualifies for new home oxygen and set up through her insurance for d/c to home today. SW called into pt room due to COVID+ precautions and pt confirms that she is staying in [place] with family and is typically independent at baseline and ambulates without device and drives. Pt confirms she has been SOB and still requiring oxygen but agreeable and looking forward to discharge home with family today and just awaiting transport. Pt denies hx of HH or SNF and does not anticipate any further needs at d/c. Per Rn, no further concerns noted at this time. Plan: Patient to d/c home later this afternoon via family POV with new home O2 set up and no further SW needs at this time. THOMAS Ko Discharge Planning/Care Management CM Discharge Assessment Start: 05/03/23 15:49 Freq: Status: Active Protocol: Document 05/03/23 15:49 BF (Rec: 05/03/23 15:50 BF [id number]) Discharge Planning Assessment Assigned Employee Relations Manager THOMAS Blanton Advance Directives? No Advance Directives on File No History Provided By Patient,Medical Record Has Patient been admitted in last 30 No days? Prior Living Arrangements House Household Members family Type of transporation used prior to Drives own vehicle admit Independent with ADL's Yes Is patient alert and oriented? Yes Caregiver for Another No DME Already Rented / Owned Oxygen Barriers to Discharge No Comment COVID+ Discharge Plan Home Transportation Arrangement Family Referrals Initiated Respiratory Therapy Review Status In Process Please Provide Date Initial DC 05/03/23 Assessment Was Performed Next Review Type Continued Stay Review
== END 2023-05-03 16:39 | disposition home or self-care (01) | DRG 177 ==
LOC: ED 07:13 → AC 07:14 → ICU 08:26
PROVIDERS: Admitting Provider Internal Medicine; Emergency Provider Emergency Medicine; Family Provider Physician Assistant Medical; PCP Physician Assistant Medical; Referring Provider Emergency Medicine; Visit Provider Internal Medicine
DX: U07.1 COVID-19 (principal); J96.01 Acute respiratory failure with hypoxia; J44.1 Chronic obstructive pulmonary disease with (acute) exacerbation; F17.210 Nicotine dependence, cigarettes, uncomplicated; I10 Essential (primary) hypertension; E78.5 Hyperlipidemia, unspecified; E03.9 Hypothyroidism, unspecified; K21.9 Gastro-esophageal reflux disease without esophagitis
CPT/HCPCS: 36415; 36600; 71045; 80048; 80053; 82550; 82805; 83690; 83880; 84145; 84484; 85025; 87633; 87797; 93005; 94640; 94660; 94762; 96365; 96367; 99285; J0696; J1100; J1650; J7613

== ENCOUNTER → 2023-10-16 14:41 | Outpatient (CLI) | payer OTHER, SELFPAY ==
[2023-05-02 07:50] VITALS: PULSE 100; RESP 35; O2SAT 94; BMI 23.0
== END ==
LOC: RESP 14:41
PROVIDERS: Family Provider Physician Assistant Medical; PCP Internal Medicine; Referring Provider Internal Medicine; Visit Provider Internal Medicine
DX: J44.9 Chronic obstructive pulmonary disease, unspecified (principal); F17.210 Nicotine dependence, cigarettes, uncomplicated
CPT/HCPCS: 94060; 94726; 94729

== ENCOUNTER → 2023-10-29 14:22 | Outpatient (CLI) | payer OTHER, SELFPAY ==
[2023-05-02 07:50] VITALS: PULSE 100; RESP 35; O2SAT 94; BMI 23.0
[2023-10-29 15:24] LABS: BUN Creatinine Ratio 28.6 (6-22); Blood Urea Nitrogen 18 mg/dL (7-17); Calcium 9.1 mg/dL (8.4-10.2); Carbon Dioxide 29 mmol/L (22-32); Chloride 102 mmol/L (98-107); Estimated Glomerular Filt Rate > 60 mL/min (>60); Glucose 149 mg/dL (80-110); HEMOLYSIS < 15 (0-50); Potassium 3.8 mmol/L (3.4-5.1); Sodium 137 mmol/L (137-145)
== END ==
PROVIDERS: Family Provider Physician Assistant Medical; PCP Internal Medicine; Referring Provider Urology; Visit Provider Urology
DX: R31.0 Gross hematuria (principal); R35.0 Frequency of micturition; R39.15 Urgency of urination; R30.0 Dysuria; Z85.51 Personal history of malignant neoplasm of bladder; Z87.442 Personal history of urinary calculi; Z92.29 Personal history of other drug therapy; Z72.0 Tobacco use
CPT/HCPCS: 36415; 80048; 81002; 99214

== ENCOUNTER → 2023-11-11 13:22 | Outpatient (CLI) | payer OTHER, SELFPAY ==
[2023-05-02 07:50] VITALS: PULSE 100; RESP 35; O2SAT 94; BMI 23.0
--- NOTE | 2023-11-11 13:23 | DI.CT.S_ITS ---
PROCEDURE: CT IVP A/P W/WO INDICATIONS: History of bladder cancer, gross hematuria, tobacco use TECHNIQUE: Optional 5 mm thick noncontrast images acquired from the diaphragm to the symphysis pubis. After the administration of intravenous contrast, 5 mm thick images acquired from the diaphragm to the symphysis pubis after a 10-minute delay. 2 mm thick coronal and sagittal reformats were then performed of the kidneys and ureters. For radiation dose reduction, the following was used: automated exposure control, adjustment of mA and/or kV according to patient size. COMPARISON: None. FINDINGS: Image quality: Diagnostic. Kidneys and Ureters: Both kidneys are normal in size. Punctate nonobstructing left-sided nephrolithiasis. No perinephric fat stranding. There is normal bilateral renal enhancement. Renal calyces appear normal in morphology when filled with contrast. Opacified portions of both ureters demonstrate normal caliber Bladder: Polypoidal mass within the base of the urinary bladder measuring 2.4 x 1.7 cm (series 4, image 176). 2nd mass at the bladder dome measuring 1.8 x 1.4 cm (series 4, image 162). No evidence of extension beyond the bladder wall. OTHER: Lower chest: Advanced destructive emphysema. Prosthetic mitral valve versus annular calcifications. Liver: No solid mass. Gallbladder: Absent. Biliary ducts: No biliary dilation. Pancreas: No ductal dilation. Spleen: Size is within normal limits. Adrenal Glands: Benign left adrenal adenoma by Hounsfield units criteria (2 Hounsfield unit), measuring 1.7 cm. Stomach and Bowel: Normal colonic caliber, without significant wall thickening. Nonobstructing duodenal diverticulum in segment 2. Colonic diverticulosis without evidence of diverticulitis. Peritoneum: No abnormal intraperitoneal fluid. No free air. Ventral Wall: No hernia. Abdominal Nodes: No retroperitoneal or mesenteric adenopathy by size criteria. Vessels: Aorta and inferior vena cava are normal in size. PELVIS: Pelvic Organs: Unremarkable. Pelvic Nodes: No enlarged lymph nodes. Miscellaneous: No inguinal hernias are seen. Bones: No aggressive osseous abnormality. IMPRESSION: A pair of polypoidal bladder masses measuring 5 2.4 x 1.7 cm and 1.8 x 1.4 cm. No evidence of extension beyond the bladder wall. No pelvic adenopathy. No additional a filling defect within the opacified renal collecting system or ureters. Punctate nonobstructing left-sided nephrolithiasis. Dictated by: Kuldip Pool M.D. on 11/11/2023 at 16:25 Approved by: Kuldip Pool M.D. on 11/11/2023 at 16:30
== END ==
LOC: CT 13:23
PROVIDERS: Family Provider Physician Assistant Medical; PCP Internal Medicine; Referring Provider Urology; Visit Provider Urology
DX: N20.0 Calculus of kidney (principal); N32.9 Bladder disorder, unspecified; R31.0 Gross hematuria; D35.02 Benign neoplasm of left adrenal gland; J43.9 Emphysema, unspecified; K57.10 Diverticulosis of small intestine without perforation or abscess without bleeding; K57.90 Diverticulosis of intestine, part unspecified, without perforation or abscess without bleeding; Z85.51 Personal history of malignant neoplasm of bladder; Z72.0 Tobacco use
CPT/HCPCS: 74178; Q9967

== ENCOUNTER → 2023-11-13 08:45 | Outpatient (CLI) | payer OTHER, SELFPAY ==
[2023-05-02 07:50] VITALS: PULSE 100; RESP 35; O2SAT 94; BMI 23.0
== END ==
PROVIDERS: Family Provider Physician Assistant Medical; PCP Internal Medicine; Visit Provider Urology
DX: C67.9 Malignant neoplasm of bladder, unspecified (principal); R31.0 Gross hematuria; R39.9 Unspecified symptoms and signs involving the genitourinary system; Z87.442 Personal history of urinary calculi; Z92.29 Personal history of other drug therapy; Z72.0 Tobacco use
CPT/HCPCS: 52000; 81002; 87077; 87086; 87186; 99214

== ENCOUNTER 2023-11-26 07:13 | Day surgery (SDC) | payer OTHER, SELFPAY ==
[2023-05-02 07:50] VITALS: PULSE 100; RESP 35; O2SAT 94; BMI 23.0
[2023-11-25 09:37] VITALS: BMI 24.4
[2023-11-26] VITALS (14 sets, daily range): BP systolic 91–152; BP diastolic 45–98; PULSE 70–86; RESP 14–22; TEMP 36.1–36.5; O2SAT 92–100; BMI 24.4
--- NOTE | 2023-11-26 | PATH_ITS ---
[facility] Accession Number: [id number] No. of containers..02 Tissue . 01 Material submitted: . PART A: bladder neck - BLADDER NECK TUMOR PART B: bladder - RIGHT ANTERIOR BLADDER TUMOR . 01 Diagnosis: A. URINARY BLADDER NECK TUMOR, TRANSURETHRAL TUMOR RESECTION: Papillary urothelial carcinoma, low-grade, noninvasive into the lamina propria. Negative for definite lymphovascular invasion, please see comment. Muscularis propria is present, without invasion. . B. RIGHT ANTERIOR BLADDER TUMOR, TRANSURETHRAL TUMOR RESECTION: Papillary urothelial carcinoma, low-grade, noninvasive into the lamina propria. Negative for lymphovascular invasion. Muscularis propria is present, without invasion. [facility] 12/02/2023 1610 Local . 01 Comment: Part A: Microscopic examination of the bladder tumor biopsies reveals low-grade papillary urothelial carcinoma without invasion in the lamina propria. There is a focal area where tumor cells grow along a superficial blood vessel, however, without definite histologic features for lymphovascular invasion. . As part of ongoing quality assurance monitor, slide A1 has also been reviewed by Dr. Blaire Ortiz, who agrees with the findings. . The diagnoses were called to Quita Mensah MA on 12/02/2023 at 2:45 p.m. . 01 Electronically signed: . Jakub Oliva MD, Pathologist NPI- [id number] . 01 Gross description: . A. Received in formalin with two identifiers and bladder neck tumor, are three, irregular, pike, soft tissue fragments ranging from 1.4 x 1.0 x 0.4 cm to 1.7 x 1.5 x 0.5 cm. No margin can be definitively identified, and on aspect of each fragment is inked. The specimen is serially sectioned and submitted entirely in cassettes A1-A3. B. Received in formalin with two identifiers and right anterior bladder tumor, are multiple, pike, soft tissue fragments aggregating to 2.4 x 1.7 x 0.5 cm. One aspect of the largest fragment is inked. The specimen is submitted entirely in cassettes B1-B2. ([id number]) /MRV 11/28/2023 1242 Local . 01 Pathologist provided ICD-10: C67.9 . 01 CPT . 465334, [id number] Specimen Comment: A courtesy copy of this report has been sent to [phone] Performed at: 01 [facility] [address] [place] [address] [address] [facility], [place], [place] [id number] MD Gregorio Georges MD Phone: [phone]
[2023-11-26] MEDS: LACTATED RINGERS 1,000 ML 21 ML IV ×2 (07:40→09:36)
[2023-11-26] MEDS: ACETAMINOPHEN 325 MG TABLET 975 MG PO (07:48)
--- NOTE | 2023-11-26 08:05 | PM.PREOP ---
Pre-operative Note COVID-19 COVID-19 status: Not tested Interval Note History & Physical reviewed/Exam performed by Physician: Yes Changes to H&P: No
[2023-11-26] MEDS: ALBUTEROL/IPRATROPIUM 3 ML AMPUL INH ×2 (08:54→10:13)
[2023-11-26] MEDS: CIPROFLOXACIN 400 MG/200 ML PIGGYBACK 200 MG IV (09:00)
--- NOTE | 2023-11-26 09:32 | SUR.OPER ---
Lithotomy on padded OR bed, head on pillow, arms secured on padded arm boards at <90 degrees abduction. Legs secured in padded yellow fins stirrups.
[2023-11-26] MEDS: SODIUM CHLORIDE IRRIG SOLUTION 3,000 ML 3000 ML IRR (09:38)
[2023-11-26] MEDS: WATER FOR INJECTION,STERILE 20 ML, mitoMYcin 20 MG INTRAVESIC (09:58)
--- NOTE | 2023-11-26 10:08 | P.OP_ITS ---
Procedure & Clinicians Procedure: Transurethral resection of bladder tumor large (2 separate tumors), placement of Noel catheter and mitomycin instillation. Same procedure as scheduled: Yes Indications: This is a 73-year-old female who had known bladder cancer. She came to establish care not having been in for some time to see a urologist. She was found to have it cystoscopy to tumors in her bladder 1 at the right bladder neck in 1 in the right anterior but the though bladder neck was 3 to 4 cm in diameter and the right anterior tumor was 2-1/2 cm. She presents this time for Transurethral resection of bladder tumor with Noel catheter placement and beth mycin instillation. Surgeon: Joel Lewis Click Yes if Unassisted: Yes Anesthesia Type: General Operative Notes Findings: Findings: External genitalia show some evidence of atrophic vaginitis. The urethral meatus is normal urethra is normal to the bladder neck where on the right going from the 6 up to the 11 o'clock position tumor was noted. The right anterior bladder with the 2nd tumor was again noted no other tumors were noted within the bladder. The ureteral orifices in normal position with clear efflux. 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 A 22 Portuguese 5 cc Noel catheter was left in place with 14 cc in the balloon. And mitomycin had been instilled within the bladder. Closure Type: not applicable Specimen(s): other (Tumor 1. Right bladder neck tumor, tumor 2. Right anterior bladder tumor. These are sent separately for pathologic examination.) Applied: catheter (Twenty-two Portuguese [address] 5 cc Noel catheter with 14 cc in the balloon.) Estimated Blood Loss (mL): 10 Blood products transfused: none Procedure in detail: Procedure in detail: After informed consent was obtained, the patient was identified and brought to the operating room where she was placed in a supine position on the table. Once their anesthesia was induced and maintained. Showing an adequate level of anesthesia the patient was transitioned to the lithotomy position where she was prepped, draped and prepared for Transurethral procedure. Ensuring an adequate level of anesthesia, after antibiotic administration, after prepping, draping and time-out the resectoscope was inserted through the urethra under direct vision. The working element was then inserted and the right bladder neck tumor was resected down to its base. Points of bleeding were controlled with the electrocautery. With the tumor completely resected again the ureteral orifices right and left were visualized and were intact. The tumor fragments were then removed and collected and sent separately as right bladder neck tumor. Attention was then turned to the right anterior tumor which again was resected points of bleeding controlled with el ectrocautery. The fragments were then collected and sent to pathologic examination. The bladder was then filled drained filled drain hemostasis was assured the bladder was left full the scope was removed and the 22 Portuguese catheter passed easily into the bladder the balloon filled with 14 cc of sterile water and placed to gravity drainage till was drained. Catheter plug was then inserted and mitomycin instilled. The plug was left in place the patient was awakened having tolerated the procedure well, she was transferred to the postanesthesia for recovery and mitomycin dwell time. She will be sent home with a catheter after recovery. There were no complications Complications: none Post-operative Condition: stable Disposition: PACU Plan for aftercare: Discharged to home after mitomycin dwell time with Noel catheter to follow up my office in 10-14 days. Given the resection the patient will need the catheter for 3 perhaps 4 weeks.
[2023-11-26] MEDS: OXYBUTYNIN 5 MG TABLET PO (10:36)
[2023-11-26] MEDS: PHENAZOPYRIDINE 100 MG TABLET 200 MG PO (10:36)
--- NOTE | 2023-11-26 11:37 | SUR.PHASEII ---
1045. lying supine when transferred to phase 2. repositioned to left side-lying. SR up x 2 with call light in easy reach. Family at bedside.
--- NOTE | 2023-11-26 11:39 | SUR.PHASEII ---
Repositioned to right side-lying. cont's to deny pain. no complaints voiced. sipping ice water.
--- NOTE | 2023-11-26 13:21 | SUR.PHASEII ---
1200 indwelling mytomycin infusion drained per protocol. 600ml output. leg bag attached with instructions - family at bedside when discharge inst given. Both verbalize understanding.
== END 2023-11-26 12:45 | disposition home or self-care (01) ==
PROVIDERS: Family Provider Physician Assistant Medical; PCP Internal Medicine; Referring Provider Urology; Visit Provider Urology
PROC: 0TBB8ZZ Excision of Bladder, Via Natural or Artificial Opening Endoscopic (ICD-10-PCS; CPT 52240; principal; 2023-11-26 08:45)
DX: C67.9 Malignant neoplasm of bladder, unspecified (principal); Z85.51 Personal history of malignant neoplasm of bladder
CPT/HCPCS: 52240; 82962; J0744; J1100; J1885; J2250; J2405; J2704; J3010; J9280

== ENCOUNTER → 2023-12-23 14:24 | Outpatient (CLI) | payer OTHER, SELFPAY ==
[2023-05-02 07:50] VITALS: PULSE 100; RESP 35; O2SAT 94; BMI 23.0
== END ==
PROVIDERS: Family Provider Physician Assistant Medical; PCP Internal Medicine; Visit Provider Urology
DX: R31.0 Gross hematuria (principal)
CPT/HCPCS: 87086